=== PATIENT | female | born 1985 | race African-American/Black ===

== ENCOUNTER → 2016-11-30 | Outpatient (CLI) | payer MEDICAID ==
[~2016-11-30] MED LIST: MEDR150I IM; MULTTAB67 PO
--- NOTE | 2016-11-30 13:21 | EKG ---
Date Performed: 11/30/2016 Time Performed: 09:17:18 PTAGE: 31 years EKG: Sinus rhythm WITH SINUS ARRHYTHMIA NORMAL ECG NO PREVIOUS TRACING DOCTOR: Ulysses Long Interpretating Date/Time 11/30/2016 13:17:51
== END ==
LOC: HCAV 09:07
DX: F33.1 Major depressive disorder, recurrent, moderate (principal); F43.10 Post-traumatic stress disorder, unspecified
CPT/HCPCS: 93005